=== PATIENT | male | born 1995 | race Caucasian/White ===

== ENCOUNTER 2019-03-04 21:59 | Emergency (ER) | payer OTHER ==
[~2019-03-04] VITALS: Ht 175.3 cm; Wt 68.2 kg
[2019-03-04 22:01] VITALS: Ht 175.3 cm; Wt 68.2 kg
[2019-03-04] MEDS ORDERED: HYDROCODON-ACE1 EAC7 PO (22:33)
[2019-03-04 22:45] VITALS: BP 123/68
== END 2019-03-04 22:46 | disposition home or self-care (01) ==
LOC: D.ER 21:59
DX: S42.002A Fracture of unspecified part of left clavicle, initial encounter for closed fracture (principal); Y93.64 Activity, baseball